=== PATIENT | male | born 1950 | race Caucasian/White ===

== ENCOUNTER 2020-06-13 17:17 | Inpatient (IN) | payer OTHER ==
[~2020-06-13] VITALS: Ht 190.5 cm; Wt 80.0 kg
--- NOTE | 2020-06-13 17:36 | NUR ---
[facility] facility for management of epiglotitis. pt arrives alert and awake, cooperative and calm. pt transfered from [facility] to [facility] without assistance, steady gait and good balance noted. bilateral patent iv sites noted. pt complaining of minimal pain, satting well in room air, respirations even and unlabored. md at bedside to assess.
--- NOTE | 2020-06-13 18:30 | NUR ---
PT PROVIDED TISSUES AND MOUTHWASH. PT AWARE NOT TO SWALLOW MOUTHWASH. PT STATES HE HAS NOT BRUSHED HIS TEETH IN A COUPLE DAYS. PT PREVIOUSLY AMBULATED TO RESTROOM WITH STEADY GAIT.
[2020-06-13] MEDS ORDERED: ACET650S21 PO (18:33)
--- NOTE | 2020-06-13 19:15 | NUR ---
GI MD AT BEDSIDE FOR ASSESSMENT WITH NASOSCOPE.
[2020-06-13] MEDS ORDERED: SODIUM CHLORIDE 0.9% 1,000 ML IV SCH (19:30)
[2020-06-13] MEDS ORDERED: BISACODYL 10 MG SUPP PR PRN (19:30)
[2020-06-13] MEDS ORDERED: VANCOMYCIN PER PHARMACY MC PRN (19:30)
[2020-06-13] MEDS ORDERED: ONDANSETRON 2MG/ML, 2ML IVPush PRN (19:30)
[2020-06-13] MEDS ORDERED: morphine SULFATE 10 MG/ML, 1ML IVPush PRN (19:30)
--- NOTE | 2020-06-13 19:46 | NUR ---
report called to corrine at ICU. pt cell number as follows: Giana [phone]. pt in room on monitor with no signs or symptoms of acute distress noted respirations even and unlabored.
[2020-06-13] MEDS ORDERED: PHARMACOKINETIC MONITORING MC PRN (20:00)
[2020-06-13] MEDS ORDERED: VANCOMYCIN 1,000 MG in SODIUM CHLORIDE 0.9% 100 ML IV ONE (20:00)
[2020-06-13] MEDS ORDERED: PHARMACOKINETIC CONSULTATION MC ONE (20:00)
[2020-06-13 20:07] VITALS: BP 117/52
[2020-06-13] MEDS: HEPARIN 5,000 UNITS/ML, 1ML SQ SCH (20:24)
[2020-06-13] MEDS: DEXAMETHASONE 4 MG/ML, 1ML IVPush SCH (20:27)
[2020-06-13] MEDS ORDERED: ACETAMINOPHEN 325 MG TABLET PO PRN (20:30)
[2020-06-13] MEDS ORDERED: ACETAMINOPHEN 650 MG/20.3 ML UDC PO PRN (20:30)
[2020-06-14] MEDS: DEXAMETHASONE 4 MG/ML, 1ML IVPush SCH ×3 (02:08→13:38)
[2020-06-14 04:11] LABS: MEAN CORPUSCULAR HEMOGLOBIN 33.6 pg (27.5-34.5); MEAN CORPUSCULAR HGB CONC 34.6 g/dL (33.2-36.2); PLATELET COUNT 165 x10^3/uL (130-400); RED BLOOD COUNT 4.06 x10^6/uL (4.38-5.82)
[2020-06-14 04:17] LABS: ANION GAP 6 mmol/L (5-15); CHLORIDE 110 mmol/L (98-107)
[2020-06-14] MEDS: HEPARIN 5,000 UNITS/ML, 1ML SQ SCH ×3 (04:37→20:39)
[2020-06-14 05:57] LABS: MD SCAN
[2020-06-14] MEDS: NICOTINE 14MG/24 HR PATCH.TD24 TD SCH (07:36)
[2020-06-14] MEDS: AMPICILLIN/SULBACTAM 3 GM in SODIUM CHLORIDE 0.9% 100 ML IV SCH ×3 (07:56→19:02)
[2020-06-14 13:39] VITALS: BP 122/68
[2020-06-14] MEDS ORDERED: CEFTRIAXONE PMX 2GM/50ML 50 ML IVPB SCH (15:30)
[2020-06-14] MEDS: CEFUROXIME 1.5 GM in SODIUM CHLORIDE 0.9% 100 ML IV SCH (15:48)
[2020-06-14 21:00] VITALS: BP 122/68
[2020-06-15] MEDS: CEFUROXIME 1.5 GM in SODIUM CHLORIDE 0.9% 100 ML IV SCH ×2 (00:03→07:28)
[2020-06-15] MEDS ORDERED: DEXAMETHASONE 4 MG/ML, 1ML IV SCH (01:00)
[2020-06-15] MEDS: AMPICILLIN/SULBACTAM 3 GM in SODIUM CHLORIDE 0.9% 100 ML IV SCH ×2 (01:12→06:46)
[2020-06-15 01:37] VITALS: BP 114/70
[2020-06-15] MEDS: HEPARIN 5,000 UNITS/ML, 1ML SQ SCH ×2 (04:56→11:49)
[2020-06-15 06:43] VITALS: BP 122/71
[2020-06-15] MEDS: NICOTINE 14MG/24 HR PATCH.TD24 TD SCH (07:31)
[2020-06-15] MEDS ORDERED: AMOX1TAB64 PO (10:24)
[2020-06-15] MEDS ORDERED: CEFU250T66 PO (10:24)
[2020-06-15] MEDS ORDERED: PRED20TA PO (10:24)
== END 2020-06-15 12:28 | disposition home or self-care (01) | DRG 153 ==
LOC: ED 18:34 → EDIP 18:46 → CCU 19:57 → 3N 06-14 12:28 → DCLOUNGE 06-15 12:08
PROVIDERS: ADMIT Family Medicine; ATTEND Hospitalist
DX: J05.10 Acute epiglottitis without obstruction (principal); R65.10 Systemic inflammatory response syndrome (SIRS) of non-infectious origin without acute organ dysfunction; J44.9 Chronic obstructive pulmonary disease, unspecified; K21.9 Gastro-esophageal reflux disease without esophagitis; R73.9 Hyperglycemia, unspecified; Z72.0 Tobacco use; Z71.6 Tobacco abuse counseling; Z91.012 Allergy to eggs
CPT/HCPCS: 36415; 80048; 85025; 87081; 96374; 99291; G0378; J0295; J0697; J1100; J1644; J2405; J3370; J7030